=== PATIENT | female | born 1995 | race Hispanic/Latino ===

== ENCOUNTER → 2018-08-06 | Outpatient (REF) | payer OTHER ==
[2018-08-06 18:16] LABS: CHLAMYDIA DNA AMPLIFICATION NEGATIVE (NEGATIVE); GC DNA AMPLIFICATION NEGATIVE (NEGATIVE)
== END ==
LOC: M LAB REF 16:30
PROVIDERS: ATTEND Family Medicine
DX: N76.0 Acute vaginitis (principal)
CPT/HCPCS: 87070; 87077; 87491; 87591; G0123

== ENCOUNTER → 2018-12-06 | Outpatient (CLI) | payer OTHER ==
--- NOTE | 2018-12-07 08:08 | REP ---
MRI left hip without contrast: History: Pain in the left hip. Technique: Coronal T1 and T2-weighted fat sat images of both hips are acquired. In addition T2-weighted fat sat images are acquired with thin section smaller field of view imaging in all three planes centered about the left hip. MRI findings: The patient's uterus is tipped to the left. There are multiple Nabothian cysts in the cervix. Ovaries are normal bilaterally. Physiologic fluid seen. No pelvic mass or adenopathy. No abdominal wall defect is appreciated. Cortical and medullary bone signal intensity is normal in the proximal femurs bilaterally. There is no evidence of avascular necrosis. There is no evidence of significant hip joint effusion on either side. There is however, a irregular fluid collection posteriorly and laterally adjacent to the proximal femur at the inferior level of the greater trochanter. There is some edema along the lateral surface of the greater trochanter as well. These changes are felt to be compatible with chronic tendonitis. The hamstring tendon insertion is unremarkable. No similar changes are seen at the lesser trochanter. Head and neck junction morphology is normal. There is no evidence of acetabular labral cartilage disruption. Ligamentum teres appears intact. No evidence of loose body. Impression: Tendonitis changes with edema and irregular fluid collection adjacent to the greater trochanter of the left hip. Otherwise negative. Electronically Signed by Gurvinder Sage MD 12/07/2018 05:12 P
== END ==
LOC: M RAD 15:40
PROVIDERS: ATTEND Orthopaedic Surgery
DX: M25.552 Pain in left hip (principal); N85.4 Malposition of uterus

== ENCOUNTER 2020-10-22 16:50 | Emergency (ER) | payer OTHER ==
[~2020-10-22] VITALS: Ht 172.7 cm; Wt 68.7 kg
[2020-10-22 16:50] VITALS: BP 136/86
[2020-10-22] MEDS ORDERED: LEXA1TAB (17:16)
[2020-10-22] MEDS ORDERED: FLUN25SP (17:16)
[2020-10-22] MEDS ORDERED: HYDR-3363 (17:16)
== END 2020-10-22 18:18 | disposition left against medical advice (07) ==
LOC: M ED 16:50
DX: Z53.21 Procedure and treatment not carried out due to patient leaving prior to being seen by health care provider (principal)

== ENCOUNTER → 2020-10-23 | Outpatient (CLI) | payer OTHER ==
[~2020-10-23] MED LIST: FLUN25SP; HYDR-3363; LEXA1TAB
== END ==
LOC: M WUC 15:18
PROVIDERS: ATTEND Allergy & Immunology Allergy
DX: L50.3 Dermatographic urticaria (principal)

== ENCOUNTER → 2021-03-14 | Outpatient (REF) | payer OTHER | LOC: M LAB REF 18:54 | PROVIDERS: ATTEND Physician Assistant | DX: N76.0 Acute vaginitis (principal) ==

== ENCOUNTER → 2021-07-15 | Outpatient (CLI) | payer OTHER | LOC: M WUC 08:49 | PROVIDERS: ATTEND Nurse Practitioner Adult Health | DX: M25.552 Pain in left hip (principal) ==

== ENCOUNTER → 2021-07-23 | Outpatient (CLI) | payer OTHER | LOC: M RAD 13:19 | PROVIDERS: ATTEND Nurse Practitioner Adult Health | DX: R10.2 Pelvic and perineal pain (principal); N88.8 Other specified noninflammatory disorders of cervix uteri ==